=== PATIENT | female | born 1940 | race Caucasian/White ===

== ENCOUNTER → 2016-06-13 | Outpatient (CLI) | payer MEDICARE, MEDICAID ==
[~2016-06-13] MED LIST: ALBUAER3 INH; ALDA2525 PO; AMMO12CR4 TOP; ASPI81TA81 PO; BLOOD GLUCOSE T1 TES; CHOL100025 PO; DAKINSFST TOPICAL; DAKINSHST TOPICAL; ERGO1CAP10 PO; FISH1000 PO; FOLI400T PO; FREEMIS42; FURO40TA PO; GENT0.1C TOPICAL; HYDR12.56 PO; LANTINJ SQ; LEVO.1 PO; LEVO25TA4 PO; LOSA100T PO; MULT1TAB46; NYST100084 TOPICAL; OMEP20CA2 PO; OXYC-432 PO; SERT-132 PO; [UNRECOGNIZED DRUG - CODE] SQ
== END ==
LOC: CLAB 13:48
PROVIDERS: ATTEND Orthopaedic Surgery Sports Medicine
DX: E55.9 Vitamin D deficiency, unspecified (principal); E83.30 Disorder of phosphorus metabolism, unspecified; E83.50 Unspecified disorder of calcium metabolism; M81.8 Other osteoporosis without current pathological fracture
CPT/HCPCS: 36415; 82306; 82310; 84100

== ENCOUNTER → 2016-08-17 | Outpatient (CLI) | payer MEDICARE, MEDICAID ==
[~2016-08-17] MED LIST changes: -ALDA2525 PO; -ERGO1CAP10 PO; -LEVO25TA4 PO
--- NOTE | 2016-08-18 09:15 | RSPPFT ---
DATE OF PROCEDURE: 08/17/16 COMMENTS: VOLUMES DYNAMIC: FVC and FEV1 normal. FLOWS: FEV1% and FEF 25-75 normal. IMPRESSION: Normal simple spirometry with no significant airways obstruction.
== END ==
LOC: HRSP 09:20
PROVIDERS: ATTEND Family Medicine
DX: R06.02 Shortness of breath (principal); Z68.39 Body mass index [BMI] 39.0-39.9, adult
CPT/HCPCS: 94060

== ENCOUNTER → 2016-10-31 | Outpatient (CLI) | payer MEDICARE, MEDICAID ==
[~2016-10-31] MED LIST changes: -FURO40TA PO; -HYDR12.56 PO
[2016-10-31 11:52] LABS: BLOOD GAS BASE EXCESS -1.3 mmol/L (-2-2); BLOOD GAS CARBOXYHEMOGLOBIN 1.3 % (0-4); BLOOD GAS HCO3 23 mmol/L (22-26); BLOOD GAS METHEMOGLOBIN 1.4 % (0-2); BLOOD GAS O2 HGB SATURATION 95 % (90-100); BLOOD GAS OXYGEN CONTENT 16.2 Vol % (12.0-20.0); BLOOD GAS PCO2 35 mmHg (38-42); BLOOD GAS PO2 109 mmHg (61-120); CRITICAL VALUE NO; DRAW SITE LT RADIAL; FIO2 21 %; NUMBER OF ARTERIAL PUNCTURES 1; STAT NO; TEMP CORR TO 98.6; ULNAR PULSE PRESENT
--- NOTE | 2016-11-01 09:49 | RSPPFT ---
DATE OF PROCEDURE: 10/31/16 COMMENTS: Spirometry shows FVC of 2.4 at 84% of predicted, FEV1 of 1.7 at 86%, FEV1/FVC ratio is normal. Flow is decreased at FEF 25, FEF 50, FEF 75 and FEF 25-75. There is no response after bronchodilator treatment. Lung volumes show residual volume is increased. TLC is normal. Diffusion capacity is normal. Flow volume loop indicates terminal airways obstruction. Room air arterial blood gases show pH of 7.42, PCO2 of 35, PO2 of 109, BiCarb of 33 and O2 Saturation at 95%. IMPRESSION: 1. Mild small airways obstructive lung disease. 2. No response after bronchodilator treatment. 3. Lung volumes show hyperinflation. 4. Diffusion capacity is normal. 5. Blood gases show normal oxygenation.
== END ==
LOC: HRSP 10:16
PROVIDERS: ATTEND Specialist
DX: J44.9 Chronic obstructive pulmonary disease, unspecified (principal)
CPT/HCPCS: 36600; 82805; 94060; 94726; 94729

== ENCOUNTER 2017-05-03 15:41 | Emergency (ER) | payer MEDICARE, MEDICAID ==
[~2017-05-03 15:41] MED LIST changes: +ACCUTES19; -AMMO12CR4 TOP; -DAKINSFST TOPICAL; -DAKINSHST TOPICAL; -FISH1000 PO; +FLUC100T2 PO; -FOLI400T PO; -GENT0.1C TOPICAL; -LEVO.1 PO; +LEVO112T2 PO; -NYST100084 TOPICAL; +NYST15T TOPICAL; +NYSTPOW TOPICAL; +SERT-129 PO; -SERT-132 PO; -[UNRECOGNIZED DRUG - CODE] SQ; +[UNRECOGNIZED DRUG - SUPPLY]; +folic acid PO
[2017-05-03] MEDS ORDERED: IOHEXOL 350 MG/ML 10 ML VIAL (for RAD DIAG) IVCONTRAST ONE (15:42)
[2017-05-03 15:44] VITALS: BP 195/109; PULSE 108; RESP 16; TEMP 97.7; O2SAT 98
[2017-05-03] MEDS ORDERED: SODIUM CHLOR 0.9% 1000 ML INJ 1,000 ML IV SCH (16:26)
[2017-05-03] MEDS ORDERED: ONDANSETRON HCL 4 MG/2 ML VIAL IVP ONE (16:30)
[2017-05-03] MEDS ORDERED: MORPHINE SULFATE 4 MG/ML INJ IV PUSH ONE (16:30)
[2017-05-03] MEDS ORDERED: SODIUM CHLORIDE 0.9% FLUSH 10 ML FLUSH IV FLUSH PRN (16:30)
--- NOTE | 2017-05-03 16:33 | PD ---
HPI Chief Complaint: Abdominal Pain Time Seen by Provider: 16:09 Travel History International Travel<30 days: No Contact w/Intl Traveler<30days: No Traveled to known affect area: No History of Present Illness HPI Patient is a 77-year-old female with history of diverticulitis, presents to the emergency room with complaints of left lower quadrant abdominal pain. Patient reports that this morning, she had morning coffee, reports that she then began to have left lower quadrant abdominal pain. Reports that pain is sharp and stabbing in nature, when she has exacerbation of these pains, pains are severe.. Reports the pain has been constant. She did follow up with her primary care doctor today, she was advised to come to the emergency room for evaluation. Patient reports that she did have 2 bowel movements today. Denies nausea or vomiting, denies any fever or chills. Patient does follow-up with Dr. Lemus in the office, reports that she is due for a colonscopy this year. Patient reports no other complaints at this time. PFSH Past Medical History Cancer: Yes (breast and colon) Cardiovascular Problems: Yes (htn) High Cholesterol: Yes Chemotherapy: Yes (colon and breast cancer) Diabetes: Yes Patient Takes Glucophage: No Diminished Hearing: No Endocrine: Yes (diabetic) Genitourinary: Yes (incontinent) Hepatitis: No Hiatal Hernia: Yes Hypertension: Yes Immune Disorder: No Musculoskeletal: Yes (arthritis back, neck) Neurologic: No Reproductive: No Respiratory: Yes (copd) Immunizations Current: Yes Thyroid Disease: Yes Past Surgical History Appendectomy: Yes Cholecystectomy: Yes Eye Surgery: Yes (BILAT. CATARACTS REMOVAL) Genitourinary Surgery: Yes (COLON SX. DT CA) Hysterectomy: Yes (PARTIAL) Joint Replacement: Yes (bilateral knee) Thoracic Surgery: Yes (lumpectomy) Other Surgery: Yes (RIGHT BREAST LUMPECTOMY DT CA, HERNIA REPAIR AND MESH REMOVAL) Social History Alcohol Use: No Tobacco Use: No Substance Use: No Allergies-Medications (Allergen,Severity, Reaction): Coded Allergies: rifampin (Unverified Allergy, Severe, 05/03/17) numbness in legs vancomycin (Unverified Allergy, Severe, Severe itching, 05/03/17) Sulfa (Sulfonamide Antibiotics) (Unverified Allergy, Intermediate, ) atorvastatin (Unverified Allergy, Intermediate, 05/03/17) ciprofloxacin (Unverified Allergy, Intermediate, 05/03/17) ezetimibe (Unverified Allergy, Intermediate, 05/03/17) levofloxacin (Unverified Allergy, Intermediate, 05/03/17) penicillin G (Unverified Allergy, Intermediate, 05/03/17) sulfamethoxazole (Unverified Allergy, Intermediate, 05/03/17) trimethoprim (Unverified Allergy, Intermediate, 05/03/17) adhesive (Unverified Allergy, Mild, Rash, 05/03/17) nickel (Verified Allergy, Unknown, Blisters, 05/03/17) *MDRO Multi-Drug Resistant Organism (Verified Adverse Reaction, Unknown, 05/03/17) MRSA (umbilical wound) - 05/29/2015 Uncoded Allergies: prednisolone acate (Allergy, Mild, Nausea/Vomiting, 03/16/16) Reported Meds & Prescriptions Reported Meds & Active Scripts Active Accu-Chek Strips Betty Plus (Blood Glucose Test Strips) 1 Jenna Jenna Strips .ROUTE QID Levothyroxine (Levothyroxine Sodium) 112 Mcg Tab 112 Mcg PO DAILY Lantus Solostar Pen Inj (Insulin Glargine) 300 Unit/3 Ml Pen 15 Units SQ BID Proair Hfa 8.5 GM Inh (Albuterol Sulfate) 90 Mcg/Act Aer 2 Puff INH Q6H PRN 108 mcg/actuation Freestyle Lancets 1 Mis Mis 1 Box .ROUTE DIRECTED [betty test strip] Strips QID Losartan (Losartan Potassium) 100 Mg Tab 100 Mg PO DAILY 90 Days [folic acid ] 1 Mg PO DAILY Sertraline (Sertraline HCl) 100 Mg Tab 100 Mg PO DAILY Blood Glucose Test Strips 1 Jenna Jenna 1 Ea .ROUTE DIRECTED Reported Aspir-81 (Aspirin) 81 Mg Tabdr 1 Tab PO DAILY Multi Vitamin Daily (Multiple Vitamin) 1 Tab Tab Vitamin D3 (Cholecalciferol) 1,000 Unit Chew 1 Caplet PO DAILY Review of Systems General / Constitutional: No: Fever, Chills Eyes: No: Visual changes HENT: No: Headaches Cardiovascular: No: Chest Pain or Discomfort, Palpitations, Tachycardia Respiratory: No: Cough, Shortness of Breath Gastrointestinal: Positive: Abdominal Pain, No: Nausea, Vomiting, Diarrhea, Constipation Genitourinary: No: Dysuria Musculoskeletal: No: Pain Skin: No Rash Neurologic: No: Weakness Psychiatric: No: Depression Endocrine: No: Polydipsia Hematologic/Lymphatic: No: Easy Bruising Physical Exam Narrative GENERAL: Moderate distress SKIN: Focused skin assessment warm/dry. HEAD: Atraumatic. Normocephalic. EYES: Pupils equal and round. No scleral icterus. No injection or drainage. ENT: No nasal bleeding or discharge. Mucous membranes pink and moist. NECK: Trachea midline. No JVD. CARDIOVASCULAR: Regular rate and rhythm. No murmur appreciated. RESPIRATORY: No accessory muscle use. Clear to auscultation. Breath sounds equal bilaterally. GASTROINTESTINAL: Abdomen soft, increased tenderness to LLQ to umbilicus with guarding on exam MUSCULOSKELETAL: No obvious deformities. No clubbing. No cyanosis. No edema. NEUROLOGICAL: Awake and alert. No obvious cranial nerve deficits. Motor grossly within normal limits. Normal speech. PSYCHIATRIC: Appropriate mood and affect; insight and judgment normal. Data Data Last Documented VS Vital Signs Date Time Temp Pulse Resp B/P (MAP) Pulse Ox O2 Delivery O2 Flow Rate FiO2 05/03/17 15:44 97.7 108 16 195/109 (137) 98 Orders Orders Complete Blood Count With Diff (05/03/17 16:26) Comprehensive Metabolic Panel (05/03/17 16:26) Prothrombin Time / Inr (Pt) (05/03/17 16:26) Act Partial Throm Time (Ptt) (05/03/17 16:26) Urinalysis - C+S If Indicated (05/03/17 16:26) Ct Abd/Pel W Iv Contrast(Rout) (05/03/17 16:26) Iv Access Insert/Monitor (05/03/17 16:26) Oximetry (05/03/17 16:26) NPO (05/03/17 16:26) Morphine Inj (Morphine Inj) (05/03/17 16:30) Ondansetron Inj (Zofran Inj) (05/03/17 16:30) Sodium Chlor 0.9% 1000 Ml Inj (Ns 1000 M (05/03/17 16:26) Sodium Chloride 0.9% Flush (Ns Flush) (05/03/17 16:30) MDM Medical Decision Making Medical Screen Exam Complete: Yes Emergency Medical Condition: Yes Medical Record Reviewed: Yes Interpretation(s) Vital Signs Date Time Temp Pulse Resp B/P (MAP) Pulse Ox O2 Delivery O2 Flow Rate FiO2 05/03/17 15:44 97.7 108 16 195/109 (137) 98 Differential Diagnosis Diverticulitis, colitis, electrolyte abnormality, uti, constipation Narrative Course During the course of the patients emergency department visit, the patients history, examination, and differential diagnosis were reviewed with the patient. The patient was placed on a personnel monitor with oximetry and frequent blood pressure monitoring. The patient had an IV access obtained and blood work sent for analysis. The patient was initially provided IV fluids, IV morphine and IV Zofran. Patient signed out to care of oncoming physician at change of shift. Jessica Fernandez DO May 03, 2017 16:33
[2017-05-03 16:53] VITALS: O2SAT 99
[2017-05-03 17:21] LABS: AUTOMATED NEUTROPHIL # 4.6 TH/MM3 (1.8-7.7); BASOPHIL % 0.5 % (0.0-2.0); EOSINOPHIL # 0.1 TH/MM3 (0-0.4); EOSINOPHIL % 1.8 % (0.0-4.0); HEMATOCRIT 36.5 % (35.0-46.0); HEMO FLAGS DIFF FINAL; LYMPH % 23.1 % (9.0-44.0); LYMPHOCYTE # 1.5 TH/MM3 (1.0-4.8); MEAN CELL VOLUME 87.4 FL (80.0-100.0); MEAN CORPUSCULAR HEMOGLOBIN 28.1 PG (27.0-34.0); MEAN CORPUSCULAR HGB CONC 32.1 % (32.0-36.0); MONO % 6.1 % (0.0-8.0); NEUT % 68.5 % (16.0-70.0); PLATELET COUNT 215 TH/MM3 (150-450); RED BLOOD COUNT 4.17 MIL/MM3 (4.00-5.30); RED CELL DISTRIBUTION WIDTH 15.8 % (11.6-17.2); WHITE BLOOD COUNT 6.7 TH/MM3 (4.0-11.0)
[2017-05-03 17:26] LABS: APTT (PATIENT) 24.8 SEC (24.3-30.1); PROTHROMBIN TIME - PATIENT 10.1 SEC (9.8-11.6)
[2017-05-03 17:34] LABS: ALKALINE PHOSPHATASE 101 U/L (45-117); ALT (GPT) 20 U/L (10-53); TOTAL BILIRUBIN ADULT 0.4 MG/DL (0.2-1.0)
[2017-05-03 18:01] LABS: BLOOD, URINE MOD (NEG); GLUCOSE,URINE NEG (NEG); KETONE, URINE NEG (NEG); NITRITE,URINE NEG (NEG); URINE COLOR LIGHT-YELLOW (YELLW/STRAW)
[2017-05-03 18:01] LABS: ANION GAP 8 MEQ/L (5-15); AST (GOT) 24 U/L (15-37); BICARBONATE 25.4 MEQ/L (21.0-32.0); BLOOD UREA NITROGEN 20 MG/DL (7-18); CHLORIDE 108 MEQ/L (98-107); GLOMERULAR FILTRATION RATE 64 ML/MIN (>89); SODIUM (NA) 141 MEQ/L (136-145)
[2017-05-03 18:02] LABS: COMMENT (UR) CULT NOT INDICATED; CULTURE IF INDICATED CULT NOT INDICATED
[2017-05-03 18:02] LABS: POTASSIUM 4.9 MEQ/L (3.5-5.1)
--- NOTE | 2017-05-03 18:35 | RADRPT ---
EXAM DATE/TIME: 05/03/2017 18:17 [facility] COMPARISON: No previous studies available for comparison. INDICATIONS : Abdomen pain. IV CONTRAST: 96 cc Omnipaque 350 (iohexol) IV ORAL CONTRAST: No oral contrast ingested. RADIATION DOSE: 16.47 CTDIvol (mGy) MEDICAL HISTORY : Cardiovascular disease. Hypertension. Carcinoma, breast.Colorectal cancer COPD DVT Diabetes SURGICAL HISTORY : Mastectomy, bilateral. Hysterectomy. ENCOUNTER: Initial ACUITY: 1 day PAIN SCALE: 6/10 LOCATION: Bilateral abdomen TECHNIQUE: Volumetric scanning of the abdomen and pelvis was performed. Using automated exposure control and ad justment of the mA and/or kV according to patient size, radiation dose was kept as low as reasonably achievable to obtain optimal diagnostic quality images. DICOM format image data is available electro nically for review and comparison. FINDINGS: Bases of lungs are clear except for minimal scarring. Mild fatty liver. The spleen, adrenals, kidneys and pancreas unremarkable. Previous cholecystectomy. Bowel containing ventral hernia on the right without evidence for obstruction or incarceration. Colon ic diverticulosis without diverticulitis. Inferior vena cava filter noted. CONCLUSION: 1. Right-sided ventral hernia containing bowel but without evidence for obstruction. 2. Colonic diverticulosis without diverticulitis. No acute bony abnormality. Igor Bolaños MD on May 03, 2017 at 18:30 Board Certified Radiologist. This report was verified electronically.
--- NOTE | 2017-05-03 19:47 | PD ---
Data Data Last Documented VS Vital Signs Date Time Temp Pulse Resp B/P (MAP) Pulse Ox O2 Delivery O2 Flow Rate FiO2 05/03/17 16:53 99 Room Air 05/03/17 15:44 97.7 108 16 Orders Orders Complete Blood Count With Diff (05/03/17 16:26) Comprehensive Metabolic Panel (05/03/17 16:26) Prothrombin Time / Inr (Pt) (05/03/17 16:26) Act Partial Throm Time (Ptt) (05/03/17 16:26) Urinalysis - C+S If Indicated (05/03/17 16:26) Ct Abd/Pel W Iv Contrast(Rout) (05/03/17 16:26) Iv Access Insert/Monitor (05/03/17 16:26) Oximetry (05/03/17 16:26) NPO (05/03/17 16:26) Morphine Inj (Morphine Inj) (05/03/17 16:30) Ondansetron Inj (Zofran Inj) (05/03/17 16:30) Sodium Chlor 0.9% 1000 Ml Inj (Ns 1000 M (05/03/17 16:26) Sodium Chloride 0.9% Flush (Ns Flush) (05/03/17 16:30) Iohexol 350 Inj (Omnipaque 350 Inj) (05/03/17 15:42) Labs Laboratory Tests Test 05/03/17 16:40 05/03/17 17:25 White Blood Count 6.7 TH/MM3 Red Blood Count 4.17 MIL/MM3 Hemoglobin 11.7 GM/DL Hematocrit 36.5 % Mean Corpuscular Volume 87.4 FL Mean Corpuscular Hemoglobin 28.1 PG Mean Corpuscular Hemoglobin Concent 32.1 % Red Cell Distribution Width 15.8 % Platelet Count 215 TH/MM3 Mean Platelet Volume 8.1 FL Neutrophils (%) (Auto) 68.5 % Lymphocytes (%) (Auto) 23.1 % Monocytes (%) (Auto) 6.1 % Eosinophils (%) (Auto) 1.8 % Basophils (%) (Auto) 0.5 % Neutrophils # (Auto) 4.6 TH/MM3 Lymphocytes # (Auto) 1.5 TH/MM3 Monocytes # (Auto) 0.4 TH/MM3 Eosinophils # (Auto) 0.1 TH/MM3 Basophils # (Auto) 0.0 TH/MM3 CBC Comment DIFF FINAL Differential Comment Prothrombin Time 10.1 SEC Prothromb Time International Ratio 1.0 RATIO Activated Partial Thromboplast Time 24.8 SEC Blood Urea Nitrogen 20 MG/DL Creatinine 0.86 MG/DL Random Glucose 117 MG/DL Total Protein 7.3 GM/DL Albumin 3.1 GM/DL Calcium Level 8.9 MG/DL Alkaline Phosphatase 101 U/L Aspartate Amino Transf (AST/SGOT) 24 U/L Alanine Aminotransferase (ALT/SGPT) 20 U/L Total Bilirubin 0.4 MG/DL Sodium Level 141 MEQ/L Potassium Level 4.9 MEQ/L Chloride Level 108 MEQ/L Carbon Dioxide Level 25.4 MEQ/L Anion Gap 8 MEQ/L Estimat Glomerular Filtration Rate 64 ML/MIN Urine Color LIGHT-YELLOW Urine Turbidity CLEAR Urine pH 5.0 Urine Specific [place] 1.007 Urine Protein NEG mg/dL Urine Glucose (UA) NEG mg/dL Urine Ketones NEG mg/dL Urine Occult Blood MOD Urine Nitrite NEG Urine Bilirubin NEG Urine Urobilinogen LESS THAN 2.0 MG/DL Urine Leukocyte Esterase TRACE Urine RBC 13 /hpf Urine WBC 2 /hpf Microscopic Urinalysis Comment CULT NOT INDICATED MDM Supervised Visit with SRI: No Narrative Course This patient is checked out to me at [address] Fernandez. I have reviewed the entirety of the workup with the patient. She feels improved. Complete lab profile is normal. CT of abdomen and pelvis shows a hernia but no incarceration or strangulation. No emergent findings. Recommend primary care follow-up to start Diagnosis Primary Impression: Abdominal pain Qualified Codes: R10.32 - Left lower quadrant pain Additional Instruction: The patient was advised to follow up with their physician and return if they worsen. Med/Other Pt SpecificInfo: Other Disposition: 01 DISCHARGE HOME Condition: Stable Saul Anders MD May 03, 2017 19:47
== END 2017-05-03 20:49 | disposition home or self-care (01) ==
LOC: NEPD 15:41
DX: R10.32 Left lower quadrant pain (principal); I10 Essential (primary) hypertension; E11.9 Type 2 diabetes mellitus without complications; J44.9 Chronic obstructive pulmonary disease, unspecified; E07.9 Disorder of thyroid, unspecified; M19.90 Unspecified osteoarthritis, unspecified site; Z87.19 Personal history of other diseases of the digestive system; Z79.4 Long term (current) use of insulin; Z79.899 Other long term (current) drug therapy
CPT/HCPCS: 74177; 80053; 81001; 85025; 85610; 85730; 96361; 96374; 96375; 99285; J2270; J2405; J7030; Q9967

== ENCOUNTER 2017-10-07 12:21 | Emergency (ER) | payer MEDICARE, MEDICAID ==
[~2017-10-07] VITALS: Ht 154.9 cm; Wt 95.0 kg
[~2017-10-07 12:21] MED LIST changes: -FLUC100T2 PO; -NYST15T TOPICAL; -NYSTPOW TOPICAL; -OMEP20CA2 PO; -OXYC-432 PO
[2017-10-07 12:25] VITALS: BP 139/74; PULSE 80; RESP 16; TEMP 98.6; O2SAT 98
[2017-10-07] MEDS ORDERED: NABU1TAB37 PO (12:47)
--- NOTE | 2017-10-07 12:54 | PD ---
HPI . Dental pain Chief Complaint: Oral / Dental Pain or Problem Time Seen by Provider: 12:34 Travel History International Travel<30 days: No Contact w/Intl Traveler<30days: No Traveled to known affect area: No History of Present Illness HPI Patient presents with a chief complaint of dental pain. This has been an ongoing symptom for her. She has already been seen by her dentist who has removed a portion of the broken wisdom tooth. She comes in to us today complaining with continued pain in that area. She rates the pain 10/10. No modifying factors. She states that her insurance will not cover an oral surgeon here locally. PFSH Past Medical History Cancer: Yes (breast and colon) Cardiovascular Problems: Yes (htn) High Cholesterol: Yes Chemotherapy: Yes (colon and breast cancer) Diabetes: Yes Diminished Hearing: No Endocrine: Yes (diabetic) Genitourinary: Yes (incontinent) Hepatitis: No Hiatal Hernia: Yes Hypertension: Yes Immune Disorder: No Musculoskeletal: Yes (arthritis back, neck) Neurologic: No Reproductive: No Respiratory: Yes Immunizations Current: Yes Thyroid Disease: Yes Past Surgical History Appendectomy: Yes Cholecystectomy: Yes Eye Surgery: Yes (BILAT. CATARACTS REMOVAL) Genitourinary Surgery: Yes (COLON SX. DT CA) Hysterectomy: Yes (PARTIAL) Joint Replacement: Yes (bilateral knee) Thoracic Surgery: Yes (lumpectomy) Other Surgery: Yes (RIGHT BREAST LUMPECTOMY DT [place], HERNIA REPAIR AND MESH REMOVAL) Social History Alcohol Use: No Tobacco Use: No Substance Use: No Allergies-Medications (Allergen,Severity, Reaction): Coded Allergies: rifampin (Unverified Allergy, Severe, 05/03/17) numbness in legs vancomycin (Unverified Allergy, Severe, Severe itching, 05/03/17) Sulfa (Sulfonamide Antibiotics) (Unverified Allergy, Intermediate, ) atorvastatin (Unverified Allergy, Intermediate, 05/03/17) ciprofloxacin (Unverified Allergy, Intermediate, 05/03/17) ezetimibe (Unverified Allergy, Intermediate, 05/03/17) levofloxacin (Unverified Allergy, Intermediate, 05/03/17) penicillin G (Unverified Allergy, Intermediate, 05/03/17) sulfamethoxazole (Unverified Allergy, Intermediate, 05/03/17) trimethoprim (Unverified Allergy, Intermediate, 05/03/17) adhesive (Unverified Allergy, Mild, Rash, 05/03/17) nickel (Verified Allergy, Unknown, Blisters, 05/03/17) *MDRO Multi-Drug Resistant Organism (Verified Adverse Reaction, Unknown, 05/03/17) MRSA (umbilical wound) - 05/29/2015 Uncoded Allergies: prednisolone acate (Allergy, Mild, Nausea/Vomiting, 03/16/16) Reported Meds & Prescriptions Reported Meds & Active Scripts Active Nabumetone 500 Mg Tab 500 Mg PO BID Accu-Chek Strips Betty Plus (Blood Glucose Test Strips) 1 Jenna Jenna Strips .ROUTE QID Levothyroxine (Levothyroxine Sodium) 112 Mcg Tab 112 Mcg PO DAILY Lantus Solostar Pen Inj (Insulin Glargine) 300 Unit/3 Ml Pen 15 Units SQ BID Proair Hfa 8.5 GM Inh (Albuterol Sulfate) 90 Mcg/Act Aer 2 Puff INH Q6H PRN 108 mcg/actuation Freestyle Lancets 1 Mis Mis 1 Box .ROUTE DIRECTED [betty test strip] Strips QID Losartan (Losartan Potassium) 100 Mg Tab 100 Mg PO DAILY 90 Days [folic acid ] 1 Mg PO DAILY Sertraline (Sertraline HCl) 100 Mg Tab 100 Mg PO DAILY Blood Glucose Test Strips 1 Jenna Jenna 1 Ea .ROUTE DIRECTED Reported Aspir-81 (Aspirin) 81 Mg Tabdr 1 Tab PO DAILY Multi Vitamin Daily (Multiple Vitamin) 1 Tab Tab Vitamin D3 (Cholecalciferol) 1,000 Unit Chew 1 Caplet PO DAILY Review of Systems Except as stated in HPI: all other systems reviewed are Neg Physical Exam Narrative GENERAL: Awake and alert and in no acute distress. SKIN: Warm and dry. HEAD: Normocephalic/atraumatic. EYES: Pupils are equal. Extraocular movements are intact. ENT: She has a sharp protrusion on the lingual side of the right mandibular ridge which is tender to palpation. The surrounding gum tissue is not red or swollen. NECK: Normal range of motion. CARDIOVASCULAR: Regular rate and rhythm. RESPIRATORY: Nonlabored respirations. MUSCULOSKELETAL: Atraumatic. NEUROLOGICAL: Nonfocal. PSYCHIATRIC: Appropriate mood and affect. Data Data Last Documented VS Vital Signs Date Time Temp Pulse Resp B/P (MAP) Pulse Ox O2 Delivery O2 Flow Rate FiO2 10/07/17 12:25 98.6 80 16 139/74 (95) 98 Orders Orders Ed Discharge Order (10/07/17 12:48) MDM Medical Decision Making Medical Screen Exam Complete: Yes Emergency Medical Condition: Yes Differential Diagnosis Differential diagnosis of a toothache includes but is not limited to dental caries, dental abscess, gingivitis, drug-seeking behavior. Narrative Course This patient presents with dentalgia. She has a sharp protrusion through the lingual gum tissue, left mandibular. I thought about prescribing her a few narcotics. However, I queried the force and this patient is getting narcotics regularly from several different providers. Most recent prescription was just a couple of days ago. I have discharged her with a prescription for Relafen and have instructed her to follow-up with an oral surgeon. Diagnosis Primary Impression: Dentalgia Patient Instructions: General Instructions Departure Forms: Tests/Procedures Additional Instructions: Follow up with an oral surgeon. [place]ag[place], warm salt water swished. Scripts Nabumetone (Nabumetone) 500 Mg Tab 500 MG PO BID for Pain-Inflammation, #60 TAB 0 Refills Prov: Leah Rao MD 10/07/17 Disposition: 01 DISCHARGE HOME Condition: Stable Leah Rao MD October 07, 2017 12:54
[2017-10-07 13:21] VITALS: BP 141/76
== END 2017-10-07 13:22 | disposition home or self-care (01) ==
LOC: NEPD 12:21
DX: K08.89 Other specified disorders of teeth and supporting structures (principal); I10 Essential (primary) hypertension; E11.9 Type 2 diabetes mellitus without complications; Z88.2 Allergy status to sulfonamides; Z88.0 Allergy status to penicillin; Z88.1 Allergy status to other antibiotic agents; Z79.4 Long term (current) use of insulin; Z85.3 Personal history of malignant neoplasm of breast; Z85.038 Personal history of other malignant neoplasm of large intestine
CPT/HCPCS: 99283